=== PATIENT | male | born 1945 | race Caucasian/White ===

== ENCOUNTER → 2018-02-03 | Outpatient (CLI) | payer MEDICARE, OTHER ==
[~2018-02-03] MED LIST: IOHEXOL 300 MG/ML 75 ML VIAL. IV ONE
--- NOTE | 2018-02-03 18:01 | RAD ---
CT CHEST W/CONTRAST Indication: Abnormal chest x-ray, smoking history Technique: Postcontrast CT imaging was performed of the chest, multiplanar reconstruction images submitted. One or more of the following individualized dose reduction techniques were utilized for this examination: 1. Automated exposure control 2. Adjustment of the mA and/or kV according to patient size 3. Use of iterative reconstruction technique. Comparison: December 11, 2015 Findings: There is small left pleural effusion. There is a somewhat nodular appearance along the pleural surface at the lingula, also more medially of the left upper lobe such as seen axial image 55 with this nodule about 0.9 cm in size. There is also focus of nodularity along the posterior left pleural surface axial image 74 about 1.7 cm. There is increased left hilar lymphadenopathy, largest individual node about 1.9 cm short axis dimension. There are again some calcified left hilar nodes present. Node lateral to the left mainstem bronchus at 1.7 cm is larger in interval, some internal calcifications as seen previously. Right paratracheal node about 1.4 cm short axis dimension is also larger, also some associated calcifications. There is new anterior left mediastinal node axial image 47 about 1.3 cm short axis dimension. There is also a new no anterior to the main pulmonary artery about 0.9 cm short axis dimension. Left subcarinal node about 1.1 cm short axis dimension is larger. There is new left cardiophrenic node axial image 79 about 1.6 cm short axis dimension, some other more peripheral nodes also new. There is also a new node of the left superior abdomen axial image 93 about 1.5 cm short axis dimension. There is no right pleural effusion. There is again severe emphysema with upper zone predominance. Reticular appearing density of the right upper lobe probably due to fibrotic change is similar. 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 There is new mild superior endplate concavity of T7, also some increased sclerosis of T5 and also new relative bone lysis of T3. Sclerotic focus on the right at T10 is stable. There is some coronary calcification. IMPRESSION: 1. There is small left pleural effusion. There is increased mediastinal and left hilar lymphadenopathy, also new nodes in the left cardiophrenic region and also left superior abdomen. There is also nodular morphology along the pleural surface of the lingula and left upper lobe more medially. Findings are concerning for malignancy until proven otherwise especially given history and severe emphysema. 2. 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 There is some coronary calcification. 3. There is new mild superior endplate concavity of T7 otherwise of uncertain chronicity. 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 Electronically signed by: Minh Denney MD (02/03/2018 5:58 PM) [id number]
== END | disposition home or self-care (01) ==
LOC: RAD 10:32
PROVIDERS: ATTEND Family Medicine
DX: J43.8 Other emphysema (principal); J91.8 Pleural effusion in other conditions classified elsewhere; I77.810 Thoracic aortic ectasia; I25.10 Atherosclerotic heart disease of native coronary artery without angina pectoris; I10 Essential (primary) hypertension; Z87.891 Personal history of nicotine dependence
CPT/HCPCS: 71260